=== PATIENT | female | born 2000 | race Caucasian/White ===

== ENCOUNTER 2020-11-15 12:47 | Outpatient (CLI) | payer BC, SELFPAY ==
--- NOTE | 2020-11-15 13:07 | XR_ITS ---
WS: [id number] Right hip, AP view, 11/15/2020 Clinical Data: CONGENITAL HIP DYSPLASIA Comparison: None. Findings: The patient has had surgery and revision of the right iliac bone with insertion of 3 orthopedic screw s. There is also been revision of the proximal right femur with an osteotomy. There is also a long pr oximal intramedullary christa and a lateral plate attached to the proximal portion of this intramedullary nail with 4 orthopedic screws. There is a fracture of the right superior pubic ramus which may be a result of the extensive surgery. The left hip is normal. There is a large amount of fecal material in the colon. The SI joints and pub ic symphysis are normal. XR/XR hip RT 1V wo/w pel [id number] Impression: Extensive surgery involving revision of the right iliac bone, an osteotomy of the proximal right femur with insertion of a proximal right intramedullary christa and revision of the right superior pubic ramus.
--- NOTE | 2020-11-15 13:07 | XR_ITS ---
WS: [id number] Right femur and thigh, AP and lateral views, 11/15/2020 Clinical Data: CONGENITAL HIP DYSPLASIA Comparison: None. Findings: The patient has had extensive surgery of the proximal right femur. There has been a revision of the r ight iliac bone with a surgically induced fracture reduced with 3 orthopedic screws. There is a surgi rocael induced fracture of the right superior pubic ramus. There is been insertion of an intramedullar y christa held with proximal orthopedic screws and a proximal lateral plate. There is also a distal salazar sverse screw fixing the christa. The distal portion of the right femur and the right knee show no abnorma lities. XR/XR femur RT min 2V* [id number] Impression: Extensive surgery involving the right iliac bone, right superior pubic ramus an d proximal right femur.
== END 2020-11-15 12:48 | disposition home or self-care (01) ==
DX: Q65.89 Other specified congenital deformities of hip (principal)
CPT/HCPCS: 73501; 73552

== ENCOUNTER 2021-02-12 10:10 | Outpatient (CLI) | payer SELFPAY ==
--- NOTE | 2021-02-12 10:23 | XRR_ITS ---
PROCEDURE INFORMATION: Exam: XR Right Femur Exam date and time: 02/12/2021 10:56 AM Age: 20 years old Clinical indication: Condition or disease; Other: Congenital hip dysplasia; Prior surgery; Surgery type: Hip, femur lengthening device TECHNIQUE: Imaging protocol: XR Right femur. Views: 2 views. COMPARISON: CR XR femur RT min 2V* [id number] 11/15/2020 1:16 PM FINDINGS: Bones/joints: Postoperative changes in the right femur, no periprosthetic lucency; intramedullary christa traverses an osteotomy site where there is partial healing; increased periosteal thickening at the operative site since 11/15/2020. Soft tissues: Unremarkable. XR/XR femur RT min 2V* [id number] IMPRESSION: Postoperative changes.
--- NOTE | 2021-02-12 10:23 | XRR_ITS ---
PROCEDURE INFORMATION: Exam: XR Right Hip Exam date and time: 02/12/2021 10:55 AM Age: 20 years old Clinical indication: Condition or disease; Other: Congenital hip dysplasia; Prior surgery; Surgery type: Femur, hip TECHNIQUE: Imaging protocol: XR Right hip. Views: 1 view hip with pelvis when performed. COMPARISON: CR XR hip RT 1V wo/w pel [id number] 11/15/2020 1:16 PM FINDINGS: Bones/joints: Postoperative change involving the right iliac bone and proximal right femur, no interval change of the right iliac bone. No periprosthetic lucency. Healed postoperative change involving the right superior pubic ramus. Soft tissues: Unremarkable. XR/XR hip RT 2-3V wo/w pel* [id number] IMPRESSION: No acute findings.
== END 2021-02-12 10:11 | disposition home or self-care (01) ==
LOC: RAD 10:14
PROVIDERS: Visit Provider Orthopaedic Surgery
DX: Q65.89 Other specified congenital deformities of hip (principal)
CPT/HCPCS: 73501; 73502; 73552

== ENCOUNTER 2023-01-12 13:39 | Outpatient (CLI) | payer SELFPAY ==
--- NOTE | 2023-01-12 12:05 | XRR_ITS ---
PROCEDURE INFORMATION: Exam: XR Right Knee Exam date and time: 01/12/2023 1:51 PM Age: 22 years old Clinical indication: Pain; Knee; Right; Prior surgery; Patient HX: Squated to get on ground and is now limited mobility. Previous hardware done on the RT leg. Poa to the hip. Leg lengthening device; Additional info: Right knee pain after injury TECHNIQUE: Imaging protocol: Radiologic exam of the right knee. Views: 3 views. COMPARISON: CR XR femur RT min 2V* [id number] 02/12/2021 10:45 AM FINDINGS: Bones/joints: There are mild degenerative changes lateral knee compartment with mild joint space narrowing and subchondral sclerosis. There are no fractures, dislocation or malalignment. Soft tissues: Unremarkable. XR/XR knee RT 3V* [id number] IMPRESSION: No acute bony abnormalities.
== END 2023-01-12 13:40 | disposition home or self-care (01) ==
PROVIDERS: PCP Family Medicine; Visit Provider Family Medicine
DX: M25.561 Pain in right knee (principal)
CPT/HCPCS: 73562

== ENCOUNTER 2024-04-19 12:46 | Outpatient (CLI) | payer MEDICAID, SELFPAY ==
--- NOTE | 2024-04-19 12:53 | XRR_ITS ---
PROCEDURE INFORMATION: Exam: XR Right Knee Exam date and time: 04/19/2024 1:01 PM Age: 23 years old Clinical indication: Right; Patient HX: Pain RT knee ; she says she has something torn in RT knee ; injured in January 2023; Additional info: Diffuse RT knee pain after acute injury TECHNIQUE: Imaging protocol: Radiologic exam of the right knee. Views: 3 views. COMPARISON: CR XR knee RT 3V* [id number] 01/12/2023 1:51 PM FINDINGS: Bones/joints: Slight downward deformity of the lateral tibial plateau. Although no lipohemarthrosis or definite linear lucency is seen the possibility of a nondisplaced plateau fracture exists. Correlate clinically and consider CT if clinically warranted. Soft tissues: Normal. XR/XR knee RT 3V* [id number] IMPRESSION: Mild downward deformity of the lateral tibial plateau, correlate clinically.
== END 2024-04-19 12:47 | disposition home or self-care (01) ==
LOC: RAD 12:47
PROVIDERS: PCP Family Medicine; Visit Provider Family Medicine
DX: M25.561 Pain in right knee (principal)
CPT/HCPCS: 73562

== ENCOUNTER → 2024-10-05 13:05 | Outpatient (BNVA) | payer MEDICARE, SELFPAY | PROVIDERS: PCP Family Medicine; Visit Provider Family Medicine | DX: Z00.00 Encounter for general adult medical examination without abnormal findings (principal); E55.9 Vitamin D deficiency, unspecified; D64.9 Anemia, unspecified; F41.9 Anxiety disorder, unspecified | CPT/HCPCS: 80053; 82306; 82607; 84443; 85025 ==

== ENCOUNTER 2024-10-17 14:54 | Outpatient (RCR) | payer MEDICARE, SELFPAY | END 2024-11-08 23:59 | disposition home or self-care (01) | LOC: SPT 14:54 | PROVIDERS: PCP Family Medicine; Visit Provider Family Medicine | DX: M25.561 Pain in right knee (principal) | CPT/HCPCS: 97110; 97161 ==

== ENCOUNTER 2024-11-09 06:00 | Outpatient (RCR) | payer MEDICARE, SELFPAY | END 2024-12-09 23:59 | disposition home or self-care (01) | LOC: SPT 06:00 | PROVIDERS: PCP Family Medicine; Visit Provider Family Medicine | DX: M25.561 Pain in right knee (principal) | CPT/HCPCS: 97110; 97112; 97164 ==

== ENCOUNTER 2024-12-10 06:00 | Outpatient (RCR) | payer MEDICARE, SELFPAY | END 2025-01-06 23:59 | disposition home or self-care (01) | LOC: SPT 06:00 | PROVIDERS: PCP Family Medicine; Visit Provider Family Medicine | DX: M25.561 Pain in right knee (principal); M25.551 Pain in right hip | CPT/HCPCS: 97110; 97112 ==

== ENCOUNTER 2025-01-07 06:30 | Outpatient (RCR) | payer MEDICARE, SELFPAY | END 2025-01-23 10:15 | disposition home or self-care (01) | LOC: SPT 06:30 | PROVIDERS: PCP Family Medicine; Visit Provider Family Medicine | DX: M25.561 Pain in right knee (principal) | CPT/HCPCS: 97110; 97164 ==

== ENCOUNTER 2025-10-10 10:14 | Outpatient (CLI) | payer MEDICARE, MEDICAID, SELFPAY ==
--- NOTE | 2025-10-10 10:24 | XR_ITS ---
WS: [id number] Exam: XR knee RT 3V* [id number] Date/Time of Exam: 10/10/2025 10:29 AM Reason For Exam: acute right upper tibia injury No acute fracture. The joint compartments are preserved. No joint effusion. Normal soft tissues. XR/XR knee RT 3V* [id number] IMPRESSION: 1. Negative RIGHT knee.
== END 2025-10-10 10:15 | disposition home or self-care (01) ==
LOC: RAD 10:19
PROVIDERS: PCP Family Medicine; Visit Provider Family Medicine
DX: M25.561 Pain in right knee (principal)
CPT/HCPCS: 73562